=== PATIENT | female | born 1985 | race Caucasian/White ===

== ENCOUNTER 2016-11-10 14:57 | Emergency (ER) | payer BC ==
[~2016-11-10 14:57] MED LIST: ANAPROX DS550 MG PO; CEPACOL; DARVOCET-N 1001 TAB PO; DAYQUIL; GARAMYCIN5 ML OP; GARAMYCIN5 ML OU; KYTRIL1 MG; LEXAPRO20 MG; NO HOME MEDS; NO MEDS; NYQUIL; POLYTRIM EYE DR10 ML EACH EYE; PRENATAL1 TAB; PRENATAL1 TAB PO; SYNTHROID200 MCG; TYLENOL; TYLENOL500 MG; VALIUM5 MG PO; XANAX0.25 MG PO; ZOFRAN ODT4 MG/UDTAB PO; ZOFRAN4 MG PO; [UNRECOGNIZED DRUG - OTHER]
[2016-11-10 15:32] LABS: URINE BILIRUBIN NEGATIVE (NEG); URINE BLOOD SMALL (NEG); URINE GLUCOSE (UA) NEGATIVE (NEG); URINE KETONE NEGATIVE (NEG); URINE LEUKOCYTE ESTERASE POSITIVE (NEG); URINE NITRITE NEGATIVE (NEG); URINE PROTEIN NEGATIVE (NEG); URINE SPECIFIC GRAVITY 1.015 (1.003-1.030)
[2016-11-10 15:35] LABS: URINE APPEARANCE CLEAR; URINE COLOR YELLOW
[2016-11-10] MEDS ORDERED: MIRENA1 EACH VG (16:02)
[2016-11-10 16:05] LABS: URINE RBC 0-1 /[HPF] (0-5)
[2016-11-10] MEDS ORDERED: OMEPRAZOLE20 M4 PO (16:24)
[2016-11-10] MEDS ORDERED: XANAX1 M1 PO (16:24)
[2016-11-10 16:42] LABS: BASO % 0.3 % (0-2); EOS % 1.2 % (0-7); EOSINOPHIL ABSOLUTE COUNT 0.1 tho/cmm (0.0-0.7); HCT-HEMATOCRIT 43.6 % (34.0-49.0); HGB-HEMOGLOBIN 15.2 gm/dl (12.0-15.5); IMMATURE GRANULOCYTES ABSOLUTE 0.02 tho/cmm (0-0.03); IMMATURE GRANULOCYTES PERCENT 0.3 % (0-0.3); LYMPH % 27.8 % (20-45); LYMPH ABSOLUTE COUNT 2.1 tho/cmm (0.8-4.5); MCH (MEAN CORPUSCULAR HGB) 30.3 pg (28.0-32.0); MCHC MEAN CORPUSCULAR HGB CONC 34.9 % (32.0-36.0); MONO % 9.2 % (0-12); MONOCYTE ABSOLUTE COUNT 0.7 tho/cmm (0.0-1.2); NEUTROPHIL ABSOLUTE COUNT 4.7 tho/cmm (1.6-8.0); NEUTROPHIL-AUTOMATED 4.7 tho/cmm (1.6-8.0); NEUTROPHILS % 61.2 % (40-80); PLATELET COUNT 340 tho/cmm (150-450); RED BLOOD COUNT 5.01 mil/cmm (4.00-5.20); RED CELL DISTRIBUTION WIDTH 12.4 % (12.4-16.4); WHITE BLOOD COUNT 7.6 tho/cmm (4.0-10.0)
[2016-11-10 17:10] LABS: ALB/GLOB RATIO 1.1 (0.8-2.0); ALBUMIN 4.1 g/dl (3.5-5.0); ALKALINE PHOSPHATASE 74 U/L (33-138); ALT/SGPT 17 U/L (12-78); BILIRUBIN,TOTAL 0.4 mg/dl (0-1.5); BLOOD UREA NITROGEN 7 mg/dl (6-24); CALCIUM 8.8 mg/dl (8.5-10.5); CARBON DIOXIDE-VENOUS 28 mmol/L (22-32); CHLORIDE 107 mmol/l (96-110); GLUCOSE 91 mg/dL (70-110); LIPASE 161 U/L (73-393); SODIUM 141 mmol/L (135-145); eGFR VALUE FOR BLACK >90 mL/Min
[2016-11-10 17:13] LABS: ANION GAP 10 mmol/L (0-20); AST/SGOT 18 U/L (10-40)
[2016-11-10 17:14] LABS: POTASSIUM 3.6 mmol/L (3.7-5.1)
[2016-11-10] MEDS ORDERED: CARAFATE1 G2 PO (19:47)
[2016-11-10] MEDS ORDERED: ULTRAM50 M1 PO (19:48)
[2016-11-10] MEDS ORDERED: ZOFRAN ODT4 MG PO (19:51)
== END 2016-11-10 19:57 ==
LOC: EDMED 14:57
PROVIDERS: Emergency Medicine
DX: R10.9 Unspecified abdominal pain (principal); R11.0 Nausea
CPT/HCPCS: J1170; J2405; Q9967